=== PATIENT | female | born 1990 ===

== ENCOUNTER 2017-09-23 06:39 | Emergency (ER) | payer OTHER ==
[~2017-09-23] VITALS: Ht 162.6 cm; Wt 59.0 kg
[2017-09-23] MEDS ORDERED: KETO10TA2 PO (11:32)
[2017-09-23] MEDS ORDERED: LEVAQUIN750 MG PO (11:32)
[2017-09-23] MEDS ORDERED: TAMS0.4C PO (11:32)
== END 2017-09-23 12:33 | disposition home or self-care (01) ==
LOC: ER 06:39
DX: R10.31 Right lower quadrant pain (principal); R10.32 Left lower quadrant pain; N39.0 Urinary tract infection, site not specified

== ENCOUNTER 2017-10-15 10:31 | Outpatient (CLI) | payer OTHER ==
[~2017-10-15 10:31] MED LIST: ANTICONCEPTIVOS; KETO10TA2 PO; LEVAQUIN750 MG PO; TAMS0.4C PO
== END 2017-10-15 10:42 | disposition home or self-care (01) ==
LOC: RAD 10:31
DX: R05 Cough (principal)

== ENCOUNTER 2018-07-28 10:22 | Outpatient (CLI) | payer OTHER | END 2018-07-28 14:23 | disposition home or self-care (01) | LOC: SONOGRAMA 10:22 | DX: R10.13 Epigastric pain (principal) ==